=== PATIENT | female | born 1990 | race African-American/Black ===

== ENCOUNTER 2017-09-04 11:39 | Inpatient (IN) ==
[2017-09-04] MEDS: LACTATED RINGERS 1,000 ML IV SCH ×3 (11:50→14:04)
[2017-09-04] MEDS ORDERED: ONDANSETRON 4 MG/2 ML VIAL IV PRN ×2 (11:59→20:02)
[2017-09-04] MEDS ORDERED: BUTORPHANOL 2 MG/ML VIAL IV PRN (11:59)
[2017-09-04] MEDS ORDERED: OXYTOCIN/LR 20 UNIT/1,000 ML BAG IV SCH (12:00)
[2017-09-04] MEDS ORDERED: CITRIC ACID/SODIUM CITRATE 30 ML UDCUP PO ONE (12:01)
[2017-09-04] MEDS ORDERED: PROMETHAZINE 25 MG/1 ML VIAL IM ONE (12:01)
[2017-09-04] MEDS ORDERED: hydrOXYzine HCL 25 MG/1 ML VIAL IM PRN (12:01)
[2017-09-04] MEDS ORDERED: ONDANSETRON 4 MG/2 ML VIAL IV ONE (12:01)
[2017-09-04] MEDS ORDERED: diphenhydrAMINE 50 MG/1 ML VIAL IV PRN ×2 (12:01)
[2017-09-04] MEDS ORDERED: BUTORPHANOL 1 MG/ML VIAL IV PRN (12:04)
[2017-09-04] MEDS ORDERED: BUTORPHANOL 1 MG/ML VIAL ONE (12:05)
[2017-09-04] MEDS ORDERED: AMPICILLIN 2,000 MG VIAL ONE (12:06)
[2017-09-04] MEDS ORDERED: SODIUM CHLORIDE 0.9% 50 ML IV ONE (12:06)
[2017-09-04] MEDS ORDERED: AMPICILLIN INJ 2,000 MG in SODIUM CHLORIDE 0.9% 50 ML IV ONE (12:10)
[2017-09-04 12:16] LABS: Basophils % 0.2 % (0.0-0.8); Eosinophils # 0.1 10*3/uL (0.0-0.87); Eosinophils % 1.2 % (0.00-10.9); Hematocrit 40.9 VOL% (35.7-47.0); Hemoglobin 13.5 GM/DL (12.0-16.0); Immature Granulocytes % 0.9 %; Lymphocytes # 2.9 10*3/uL (1.4-4.0); Lymphocytes % 26.5 % (21.3-54.2); Mean Corpuscular Hemoglobin 30 PG (27-34); Mean Corpuscular Volume 92.1 FL (87-102); Mean Platelet Volume 10.5 FL (9.6-12.0); Monocytes # 1.2 10*3/uL (0.11-0.8); Neutrophils # 6.5 10*3/uL (1.4-7.4); Neutrophils % 60.2 % (38.7-73.9); Platelet Count 202 T/CUMM (130-400); Red Blood Count 4.44 MC/CUMM (3.8-5.5); Red Cell Distribution Width 13.7 % (9.3-17.3); White Blood Count 10.8 T/CUMM (4-12)
[2017-09-04] MEDS ORDERED: AMPICILLIN 2,000 MG VIAL IM ONE (12:21)
[2017-09-04] MEDS ORDERED: FAMOTIDINE 20 MG/2 ML VIAL IV ONE (12:24)
[2017-09-04] MEDS ORDERED: fentaNYL 2 MCG/ROPIV 0.2% EPID 150 ML EPIDURAL SCH (12:30)
[2017-09-04 12:57] LABS: Albumin 2.9 G/DL (3.4-5.0); Bilirubin,Total 0.6 MG/DL (0.2-1.0); Calcium 8.9 MG/DL (8.5-10.1); Osmolality,Calculated 269.8 MOS/KG (273-304); Potassium 3.9 MMOL/L (3.5-5.1); Total Protein 7.4 G/DL (6.4-8.3)
[2017-09-04] MEDS: ePHEDrine 50 MG/ML AMP IV PRN ×3 (13:30→13:32)
[2017-09-04 15:18] LABS: Apearance,Urine Slightly Hazy (Clear); Bilirubin,Urine Negative (Negative); Blood, Urine Negative (Negative); Glucose,Urine (UA) Negative (Negative); Ketones,Urine 20 mg/dL (Negative); Mucus,Urine Occasional /LPF (Occasional); Nitrite,Urine Negative (Negative); Protein,Urine Negative; RBC,Urine 16 /HPF (0-4); Squamous Epithelial Cell,Urine Occasional /HPF (0-10); Urine Color Yellow (Yellow); Urine Specific Gravity 1.019 (1.001-1.035); WBC,Urine 2 /HPF (0-6)
[2017-09-04] MEDS ORDERED: miSOPROStol 200 MCG TABLET ONE (15:53)
[2017-09-04] MEDS ORDERED: METHYLERGONOVINE 0.2 MG/1 ML AMP ONE (15:53)
[2017-09-04] MEDS ORDERED: AMPICILLIN INJ 1,000 MG in SODIUM CHLORIDE 0.9% 50 ML IV SCH (16:30)
[2017-09-04 16:51] LABS: Cord Arterial Blood HCO3 24.9 MMOL/L
[2017-09-04 16:52] LABS: Cord Venous Blood HCO3 21.4 MMOL/L; Cord Venous Blood PCO2 48.5 MMHG; Cord Venous Blood PO2 27.2
[2017-09-04] MEDS ORDERED: IBUPROFEN 800 MG TABLET PO PRN (20:02)
[2017-09-04] MEDS ORDERED: MAGNESIUM HYDROXIDE SUSP 30 ML UDCUP PO PRN (20:02)
[2017-09-04] MEDS ORDERED: ACETAMINOPHEN 325 MG TABLET PO PRN (20:02)
[2017-09-04] MEDS ORDERED: BISACODYL 10 MG SUPP RECTAL PRN (20:02)
[2017-09-04] MEDS ORDERED: LACTATED RINGERS 1,000 ML IV SCH (20:02)
[2017-09-04] MEDS ORDERED: OXYTOCIN/LR 20 UNIT/1,000 ML BAG IV ONE (21:14)
[2017-09-04] MEDS: DOCUSATE SODIUM 100 MG CAPSULE PO SCH (21:23)
[2017-09-05] MEDS: IBUPROFEN 800 MG TABLET PO PRN ×2 (00:40→20:42)
[2017-09-05 05:06] LABS: Basophils % 0.3 % (0.0-0.8); Eosinophils # 0.1 10*3/uL (0.0-0.87); Eosinophils % 0.7 % (0.00-10.9); Hematocrit 35.4 VOL% (35.7-47.0); Hemoglobin 11.7 GM/DL (12.0-16.0); Immature Granulocytes % 0.7 %; Immature Granulocytes Absolute 0.07 #; Lymphocytes # 2.1 10*3/uL (1.4-4.0); Lymphocytes % 19.7 % (21.3-54.2); Mean Corpuscular HGB Conc 33.1 GM/DL (32-36); Mean Corpuscular Hemoglobin 30 PG (27-34); Mean Corpuscular Volume 91.2 FL (87-102); Mean Platelet Volume 10.8 FL (9.6-12.0); Monocytes # 1.3 10*3/uL (0.11-0.8); Monocytes % 11.9 % (1.7-12.7); Neutrophils # 7.1 10*3/uL (1.4-7.4); Neutrophils % 66.7 % (38.7-73.9); Platelet Count 136 T/CUMM (130-400); Red Blood Count 3.88 MC/CUMM (3.8-5.5); Red Cell Distribution Width 13.4 % (9.3-17.3); White Blood Count 10.7 T/CUMM (4-12)
[2017-09-05] MEDS: DOCUSATE SODIUM 100 MG CAPSULE PO SCH ×2 (08:47→20:42)
[2017-09-05] MEDS ORDERED: MULTIVITAMIN (PRENATAL) TABLET PO SCH (09:00)
[2017-09-06 07:37] VITALS: BP 161/87
== END 2017-09-06 12:15 | disposition home or self-care (01) | DRG 560 ==
LOC: N.LDOUT 11:39 → N.LD 11:41 → N.OB 20:00
PROVIDERS: ADMIT Obstetrics & Gynecology; ATTEND Obstetrics & Gynecology